=== PATIENT | female | born 1995 | race Caucasian/White ===

== ENCOUNTER 2023-06-04 05:59 | Day surgery (SDC) | payer SELFPAY ==
--- NOTE | 2023-06-03 17:34 | PCM.HP.BLA ---
History and Physical Date of Admission: 06/04/23 Vital Signs 05/05/2414:08 Height 5 ft 4 in Weight: 118 lb 6 oz BMI 20.3 BP 116/73 Intake Visit Reasons: OVARIAN CYST, Ref by Teddy Miller Incident Response Specialist Required: No Is patient in pain?: No Allergies Sulfa (Sulfonamide Antibiotics) Allergy (Verified 05/05/23 15:09) Hives Medications NK 05/05/23 [History Confirmed 05/05/23] Is last menstrual period known: Yes Last Menstrual Period: 04/16/23 Post menopausal: No Patient : No : No PFSH Family History (Updated 05/05/23 @ 15:15 by Laisha Nguyen) Grandfather CVA (cerebral vascular accident)Grandmother Cancer Social History (Updated 05/05/23 @ 15:12 by Laisha Nguyen) adopted: No household members: other current occupational status: employed 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 she had imaging that showed possible bilateral ovarian complex cysts either teratomas or endometriomas. she was having pelvic pain. 6-7 years ago she was having intermittent side that was severe if she didn't take motrin right away, and now she had a few episodes again so she saw Teddy diehl and he ordered imaging. pelvic mri shows bilateral cysts 5 and 6 cm suspicious for endometriomas and 4 cm fundal fibroid. she has some menses that are painful the first day but not too heavy. f Female Reproductive History Last Menstrual Period: 04/16/23 Cycle Length: 21-35 Bleeding Duration: 7 Associated symptoms: dysmenorrhea worst first day Questions: metorrhagia: No and sexually active: No Menopausal Symptoms: No night sweats ROS Const Constitutional: Denies fatigue, night sweats, weight gain or weight loss ENT ENT: Reports system reviewed and no additional complaints, except as documented Cardio Card: Denies chest pain Resp Resp: Denies cough or dyspnea GI GI: Reports as per HPI; Denies abdominal pain, constipation, nausea or vomiting : Denies nipple discharge, urinary frequency, urinary incontinence, urinary hesitancy, urinary urgency, vaginal discharge, vaginal dryness, vaginal odor or vaginal pruritus Musc Musc: Denies arthralgias, back pain or muscle weakness Skin Skin/Breast: Denies alopecia, change in hair, dry skin, breast mass, breast pain, breast skin changes or nipple discharge Neuro Neuro: Reports system reviewed and no additional complaints, except as documented Psych Psych: Reports system reviewed and no additional complaints, except as documented Endo Endo: Denies cold intolerance, excessive sweating, heat intolerance or polydipsia Otis/Lymph Hematologic/Lymphatic: Denies easy bleeding, Denies easy bruising and Denies lymphadenopathy Exam Const General: cooperative, healthy appearing, comfortable and no acute distress Orientation: alert HENIA Head: normal to inspection and normocephalic Ears: hearing grossly normal bilaterally and external ears normal Nose: external nose normal and nares normal Face and sinus: normal facial exam Neck Neck: normal visual inspection and no lymphadenopathy Thyroid: thyroid normal Chest Chest palpation & inspection: normal inspection of the chest Resp Effort & Inspection: normal respiratory effort Auscultation: clear to auscultation bilaterally Cardio Rate: regular rate Rhythm: regular rhythm Heart Sounds: S1 normal and S2 normal GI Inspection: normal to inspection and non-distended Palpation: soft and no hepatosplenomegaly Musc Other: gross motor intact no deficits, full bilateral strength Skin General: no rashes or lesions noted Neuro General: patient alert, patient awake, moves all extremities and no focal motor deficits Motor: muscle tone normal throughout Extrem General: normal to inspection and no pedal edema Psych Appearance: grossly normal Mental Status: mental status grossly normal Affect: normal affect Speech and Movement: speech and movement normal Coding Level of Care Code Off vis,new,level 4 Diagnoses Bilateral ovarian cysts N83.201; N83.202 Assessment and Plan Assessment and Plan (1) Bilateral ovarian cysts: Status: Acute Comment: endometriomas. discussed laparoscopic ovarian cystecotmies vs open or robotic if done with myomectomy. patient to decide. may ocnsider ocp or orilissa or myfembree for suppression until surgery if delaying signficantly. discussed referral to tertiary center for robotic procedure if desired. Plan Problem list updated and treatment plans were reviewed with the patient and relevant educational handouts given. See problem list details for specific plan information. After discussing the patient's diagnosis and treatment plan options, patient wishes to proceed with surgical management. I have discussed with the patient the risks, benefits, and alternatives of the procedure which include but are not limited to risks of anesthesia, bleeding, infection, possible damage to bowel, bladder, or surrounding vasculature which could lead to additional surgery to evaluate any complications. Patient agrees to procedure and wishes to proceed. ACOG/uptodate references given for additional information regarding procedure.
[2023-06-04] VITALS (13 sets, daily range): BP systolic 97–123; BP diastolic 53–97; PULSE 63–82; RESP 16–18; TEMP 36.1–37.6; O2SAT 92–100; BMI 21.0
--- OUTSIDE RECORDS SUMMARY | 2023-06-04 06:07 | XMS RPT_ITS | CCD ---
Author Name Unknown Address [address] [place] [address] Organization [facility] Care Team Providers Care Hospital Unit Clerk Name Role Phone AI CLAYD Referring Unavailable OBED DOMINIQUE Referring Unavailable Results Test Name Value Interpretation Reference Range Facil ity Encounters Encounter Date Encounter Type Care Provider Facility Start: 04-02-2023 End: 04-03-2023 ambulatory DOMINIQUE OBED Not Available Start: 03-12-2023 End: 03-13-2023 ambulatory DOMINIQUE CLAY Not Available Summary Purpose Family History No Family History Records Found Advance Directives No Advanced Directives Records Found Additional Source Comments INFORMATION SOURCE (unrecogn ized section and content) FOR RECORDS PERTAINING TO PATIENTS WHO ARE OR HAVE BEEN ENROLLED IN A CHEMICAL DEPENDENCY/SUBSTANCEABUSE PROGRAM, SOME INFORMATION MAY BE OMITTED. This clinical summary was aggregated from multiple sources. Caution should be exercised in using it in the provision of clinical care. This summary normalizes information from multiple sources, and as a consequence, information in this document may materially change the coding, format and clinical context of patient data. In addition, data may be omitted in some cases. CLINICAL DECISIONS SHOULD BE BASED ON THE PRIMARY CLINICAL RECORDS. [facility] [employer] provides no warranty or guarantee of the accuracy or completeness of information in this document.
[2023-06-04 06:45] LABS: Internal QC Validated? YES +Cl - CLEAR BKGD; Pregnancy, Urine Negative Negative
[2023-06-04 06:58] LABS: Hematocrit 40.1 % (37-47); Hemoglobin 13.6 g/dL (12.0-15.0); Mean Corp Hgb Conc 33.9 g/dL (32-36); Mean Corpuscular Hgb 29.6 pg (27.0-32.0); Mean Corpuscular Volume 87.4 fL (81-99); Mean Platelet Vol. 9.1 fl (6.2-12.0); Platelet Count 315 K/mm3 (150-450); RBC Distribution Width CV 12.2 % (11.6-14.6); RBC Distribution Width SD 39.4 fl (35.1-43.9); Red Blood Count 4.59 M/mm3 (4.2-5.4); White Blood Count 7.9 K/mm3 (4.4-11.0)
[2023-06-04] MEDS: Lactated Ringers 1,000 ML 15 ML IV ×2 (07:01→09:01)
--- NOTE | 2023-06-04 07:30 | OV_PTH ---
PATHOLOGY RESULTS PATIENT: CRISTOPHER RACHEL LOC: [facility] [place] U#:[id number] AGE/SX: 28/F ROOM: RE06/04/[address]: Dr. Maribell Ortez MD : 1995 BED: DIS: 06/04/2023 SPEC #: [id number] RECD: 06/04/23 11:09 STATUS: PADDY PEREIRAMark #: [id number] SEA: 06/04/23 07:[address]: Maribell Ortez DEPT: SURGICAL PATHOLOGY RECD BY: Isabel Newell ENTERED: 06/04/23 11:55 SP TYPE: OVARY OTHR DR: Teddy Miller PA-C Tissues: OVARIAN CYST Procedures: Surgery Specimen Level V HEADER OPERATION: Laparoscopic ovarian cystectomy PRE-OP DIAGNOSIS: Endometriomas, bilateral ovarian cysts, uterine fibroid TISSUE SUBMITTED: Right and left ovarian cyst wall MICROSCOPIC DIAGNOSIS Right and left ovarian cyst cole, excision: Fibrous walled cysts with hemorrhage and benign histiocytic reaction. AM:kyara 06/08/2023 COMMENT Endometrioma/endometriotic cysts are likely, however, endometrial lining is not identified. Case has been reviewed in consultation with Dr. Castañeda who concurs with the above diagnosis. IDC:CRISTOBAL MICROSCOPIC DESCRIPTION Slides are reviewed. GROSS DESCRIPTION Received in fixative is one container labeled with the patient's name and designated right and left ovarian cyst wall. The specimen consists of two pieces of tissue consistent with cyst wall. They are not identified as right or left and measures 4.0 x 3.0 x 0.8 cm and 4.5 x 2.5 x 1.5 cm. The outer surface of the cyst wall is smooth. The cyst surface is congested and hemorrhagic. Asbestos Siding Installer sections from both pieces are submitted as follows: 1-3 - one piece, 4-6 - second piece. / CRISTOBAL:kyara 06/04/2023 The rest of the specimen is submitted in six more cassettes, -12. / CRISTOBAL:kyara 06/07/2023 TC:5 CPT: 65667
--- NOTE | 2023-06-04 09:33 | OP.PCM_ITS ---
Problems Associated Problem List Diagnoses (1) Uterine fibroid: (2) Bilateral ovarian cysts: (3) H/O laparoscopy: Report of Operation Date of Procedure: 06/04/23 Pre-Operative Diagnosis: bilateral ovarian endometriomas Post-Operative Diagnosis: stage IV endometriosis Surgery/Procedure Performed:: laparoscopic bilateral ovarian cystectomies Description of Surgical Findings:: bilateral large endometriomas with obliteration of the cul de sac Surgeon: Maribell Ortez rn clinical documentation: Faisal Brown Type of Anesthesia: General and Local Special Medications: floseal and moses Specimen's removed: bilateral ovarian endometriomas Drains: none Estimated Blood Loss (mL): 150 Fluids Replaced: crystalloid Description of Procedure: Patient was taken in the operating room and was placed under general anesthesia was prepped and draped in normal sterile fashion in the dorsal lithotomy position. Bladder was drained of clear urine and SCDs were on preoperatively. Uterus was sounded and a uterine manipulator was placed after dilating. Attention was then paid to the abdominal portion of the procedure and the umbilicus was elevated with towel clamps and injected with Marcaine and after a 5 mm incision was made and the Veress needle was entered into the abdomen confirmed to be intra-abdominal with a low opening pressure of less than 5 mmHg. Abdomen was insufflated with CO2 gas and a 5 mm optical trocar was placed under direct visualization. A right 5 and left lower quadrant 5 mm ports were placed under direct visualization. Bilateral ovarian endometriomas were noted to be enlarged and adherent in the cul-de-sac with no movement. Uterus was enlarged with multiple fibroids. Cul-de-sac was completely obliterated. Using the suction railroad detective some mobilization and visibility was noted to be visualized around the ovaries. No bowel adhesions were noted and no endometriosis implants were noted in the abdomen. Ovarian to uterine adhesions were taken down. Bilateral fallopian tubes were noted to be clubbed and adherent with adhesions and did not appear to be within normal limits. After freeing up the ovaries and obtaining access bilateral longitudinal incisions were made and chocolate like material was drained to confirm bilateral endometriomas. After completely draining both ovaries ovarian cystectomies were performed by removing the cyst wall bilaterally. Remaining ovarian tissue was noted in cauterized to obtain hemostasis. The area was copiously irrigated with suction irrigation and multiple adhesions were taken down the cul-de-sac and the ovarian fossa to try and restore normal anatomy. Fallopian tube to ovarian and uterine adhesions were also taken down to restore normal anatomy. Overall the surgery took 90 minutes to perform due to the complexity of the surgery and severity of the endometriosis. The vast majority of the surgery was spent with adhesiolysis and treatment of the endometriosis with a cystectomy. Floseal was placed over the bilateral ovarian bases and Moses placed over the entire operative area to obtain hemostasis. The left lower quadrant incision was enlarged to a 12 mm port site to use a 10 mm bag to remove the ovarian cyst cole. The fascial incision was closed using the Ubaldo Ramos and an 0 Vicryl. Liver and upper abdomen were visualized notably within normal limits and no other gross abnormalities were seen in the abdomen. All instruments removed from the abdomen after gas was desufflated. Port sites were closed with 3-0 Monocryl Steri's and op sites were applied. All instruments removed from the vagina and patient was awoken and taken recovery in stable condition. Grafts/Implants Used: none Procedure Start Time: 08:06 Procedure Stop Time: 09:42 Complications none Admit VTE Documentation VTE Present on Admission: No VTE Mechan Device Prophylaxis: SCD's Multi Select Codes Urinary/Genital Urinary/Genital CPT Codes: 45082 Laproscopic ablation endometriosis
[2023-06-04] MEDS: Bupivacaine 0.25% 30 ML Vial (09:36)
--- NOTE | 2023-06-04 09:40 | DCINST_ITS ---
Discharge Instructions Diet Discharge Diet: No restrictions Activity Discharge Activity: Return to Normal Activity, May Not Drive (for 2 weeks or while taking narcotic pain meds.), May Shower and May Take a Tub Bath (in 7 days) May resume sexual activity in: 1 week Weight Bearing Status: Full weight bearing Dressing / Incision Call your doctor if your incision/area has: Continuous Slow Oozing, Sudden Increased Bleeding, Increased Pain/ Swelling, Increased Redness and Foul Smelling Discharge Call your doctor if you observe: Fever of 101 or Higher, Using more than 1 pad per hour, Shortness of breath, Chest pain and Uncontrolled pain Suture Line Care: Avoid Pulling/Pushing and Avoid Pinching/Bending Remove Dressing in: 1 week (if present) Cleanse incision/area with: Soap & Water and Keep Dressing Clean & Dry Follow Up Care When: Call to make an appointment with your doctor for a fu/incision check in 1- 2 weeks. Test Results: Test results from this visit will be discussed in further detail at your follow- up appointment, if applicable. Discharge Plan Admission Attending Provider: Maribell rOtez Primary Care Provider: Teddy Miller Discharge Orders/Prescriptions Prescriptions: New oxycodone-acetaminophen [Percocet] 5-325 mg tablet 1 tab PO Q6H PRN (Reason: pain) 7 Days Qty: 10 0RF naproxen [naproxen] 500 mg tablet 500 mg PO BID PRN PRN (Reason: Pain) Qty: 30 1RF No Action HORMONAL BALANCE 1 dose PO DAILY Referrals / Follow Up: Teddy Miller PA-C [Primary Care Provider] - Disposition Disposition (needs filled in before D/C Order can be placed): Home, Self Care
[2023-06-04] MEDS: Oxycodone/Apap 5/325 Tablet PO (12:54)
== END 2023-06-04 13:42 | disposition home or self-care (01) ==
LOC: SDC 06:05 → AC 06:06
PROVIDERS: PCP Physician Assistant; Referring Provider Obstetrics & Gynecology; Visit Provider Obstetrics & Gynecology
PROC: (CPT 58661; principal; 2023-06-04 07:15)
DX: D25.9 Leiomyoma of uterus, unspecified (principal); N94.6 Dysmenorrhea, unspecified; N83.201 Unspecified ovarian cyst, right side; N83.202 Unspecified ovarian cyst, left side; N85.2 Hypertrophy of uterus; N83.8 Other noninflammatory disorders of ovary, fallopian tube and broad ligament
CPT/HCPCS: 58662; 00840; 81025; 85027; 86850; 86900; 86901; 88305; 88307; J7120; J2405